=== PATIENT | male | born 2000 | race Caucasian/White ===

== ENCOUNTER 2020-01-26 06:40 | Day surgery (SDC) | payer OTHER ==
[2020-01-24 09:11] VITALS: BMI 39.8
--- OUTSIDE RECORDS SUMMARY | 2020-01-26 06:52 | XMS ---
:2000 Author Organization [facility] Care Team Providers Name Role Phone Doug STEPHENS, Richi Unavailable Unavailable Doug STEPHENS, Richi Unavailable Unavailable Doug STEPHENS, Richi Unavailable Unavailable Doug STEPHENS, Richi Unavailable Unavailable Bennett Enamorado MD Unavailable Unavailable Koelsch, Taryn Unavailable Unavailable Koelsch, Taryn Unavailable Unavailable Koelsch, Taryn Unavailable Unavailable Lavelelch, Taryn Unavailable Unavailable Lawanda Love MD Unavailable Unavailable Lawanda Love MD Unavailable Unavailable Lawanda Love MD Unavailable Unavailable Lawanda Love MD Unavailable Unavailable Lawanda Love MD Unavailable Unavailable Lawanda Love MD Unavailable Unavailable Lawanda Love MD Unavailable Unavailable Lawanda Love MD Unavailable Unavailable Nicol Nelson RD Unavailable Unavailable Maryanne Gates MD Unavailable Unavailable Maryanne Gates MD Unavailable Unavailable Kody STEPHENS, Maryanne Unavailable Unavailable Kody STEPHENS, Maryanne Unavailable Unavailable Kody STEPHENS, Maryanne Unavailable Unavailable Re-disclosure Warning The records that you are about to access may contain information from federally- assisted alcohol or drug abuse programs. If such information is present, then the following federally mandated warning applies: This information has been disclosed to you from records protected by federal confidentiality rules (42 CFR part 2). The federal rules prohibit you from making any further disclosure of this information unless further disclosure is expressly permitted by the written consent of the person to whom it pertains or as otherwise permitted by 42 CFR part 2. A general authorization for the release of medical or other information is NOT sufficient for this purpose. The Federal rules restrict any use of the information to criminally investigate or prosecute any alcohol or drug abuse patient.The records that you are about to access may contain highly sensitive health information, the redisclosure of which is protected by Article 27-F of the [facility] Public Health law. If you continue you may haveaccess to information: Regarding HIV / AIDS; Provided by facilities licensed or operated by the [facility] Office of Mental Health; or Provided by the [facility] Office for People With Developmental Disabilities. If such information is present, then the following [facility] mandated warning applies: This information has been disclosed to you from confidential records which are protected by state law. State law prohibits you from making any further disclosure of this information without the specific written consent of the person to whom it pertains, or as otherwise permitted by law. Any unauthorized further disclosure in violation of state law may result in a fine or alf sentence or both. A general authorization for the release of medical or other information is NOT sufficient authorization for further disclosure. Allergies and Adverse Reactions Type Description Substance Reaction Status Data Source(s ) Drug allergy No Known Allergies No Known NO KNOWN ALLERG Jama Smiley [facility] Family History Family Member Family Member Family Member Date of Description Data Source(s) Name Gender Status Status Unknown Female Problem 09/28/2015 NEXTGEN ([place] n (finding) 12:00:00 AM [facility] EDT [facility] ) Unknown Female Problem 09/28/2015 NEXTGEN ([place] (finding) 12:00:00 AM [facility] EDT [facility] ) Encounters Encounter Providers Location Date Indications Data Source(s ) Attender: Richi [facility] 12/31/2019 Encounter for NEXT GEN ([place] 12:15:[facility] 12/31/2019 12:15:00 PM EDT Encounter for immunization Outpatient Attender: Bennett 12/14/2019 CHRONIC ADENOIDITIS , Jama Enamorado MD 10:15:00 AM EDT - DEVIATED SEPTUM, H ospital 12/14/2019 HYPERTROPHY 05:53:00 AM EDT CHRONIC ADENOIDITIS, DEVIATED SEPTUM, HY PERTROPHY Patient discharged. Attender: Jayy Pulmonology 11/22/2019 Other obesity due t o NEXTGEN Nicol Nelson RD [facility] 03:02:00 PM excess caloriesDie tary (Dami [facility] EDT - calcium deficiencyPure Ch ildrens 11/22/2019 hypercholesterolemia, Hea lth 03:02:00 PM unspecifiedAbnormal Phys icians EDT weight gain LLP) Other obesity due to excess calories Dietary calcium deficiency Pure hypercholesterolemia, unspecified Abnormal weight gain Attender: Lawanda Edge At 11/21/2019 NEXTGE N (Dami Love MD [place] - 03:24:00 [facility] 03:24:00 PM EDT Attender: Lawanda Edge At 11/18/2019 NEXT N (Dami Love MD [place] 09:23:00 AM EDT - [facility]18[facility] ) 09:23:00 AM EDT Attender: Lawanda Edge At 11/02/2019 NEXT N (Dami Love MD [place] 11:49:00 AM EDT - [facility] 11/02/2019 [facility] ) 11:49:00 AM EDT Attender: Lawanda Edge At 10/31/2019 [facility] N (Dami Love MD [place] 11:38:00 AM EDT - [facility] 10/31/2019 [facility] ) 11:38:00 AM EDT Attender: Nicol [facility] Pulmonology 10/25/2019 Abnormal weigh t NEXTGEN (Dami Nelson RD [facility] 03:35:00 PM EDT - gainOther Child [facility] 10/25/2019 obesity due to [facility]) 03:35:00 PM EDT excess calories Abnormal weight gain Other obesity due to excess calories OutpatientOFFICE/OUTPATIENT Attender: Jayy Edge 10/17/2019 Vitamin D deficiency, NEXTGEN VISIT EST 33-40 Lawanda Coy [place] - 12:00:00 PM unspecifiedVitilig oAbnormal (Dami Love MD [facility] EDT - weight gainAutoimmune Chi ldrens 10/17/2019 thyroiditis Health 12:00:00 PM [facility] EDT LLP) Vitamin D deficiency, unspecified Vitiligo Abnormal weight gain Autoimmune thyroiditis OutpatientPREV Attender: Pediatrics 09/29/2019 Encntr for general NE XTGEN VISIT EST AGE Richi Jose Masseyy 10:00:00 AM adult medical exam (Michael golden 18-39 Doug Garcia EDT - w/o abnormal Childrens 09/29/2019 findingsPressure Health 10:00:00 AM sensation in both Physic ians EDT earsHypertension, LLP) unspecified typeAutoimmune thyroiditisObesity (BMI 35.0-39.9 without comorbidity)Vitamin D deficiency, unspecifiedSprain of unspecified ligament of left ankle, subs encntr Encntr for general adult medical exam w/ o abnormal findings Pressure sensation in both ears Hypertension, unspecified type Autoimmune thyroiditis Obesity (BMI 35.0-39.9 without comorbidi ty) Vitamin D deficiency, unspecified Sprain of unspecified ligament of left a nkle, subs encntr 11-20 MINS OF Attender: Pediatrics Of 09/14/2019 Otalgia, NEXTGEN MEDICAL Taryn Darline [place] 01:50:00 PM bilateral ([place] DISCUSSION VIA EDT - [employer] TELEPHONE E/M 09/14/2019 Health PHYS 01:50:00 PM [facility] EDT LLP) Otalgia, bilateral Attender: Taryn [facility] Of 09/05/2019 ENEIDA N (Dami Gregorio [place] 12:19:00 PM EDT Childr ens - 09/05/2019 Health 12:19:00 PM EDT [facility]) OutpatientO Attender: Taryn [facility] 08/30/2019 Otalgia, NEXTG EN ([place] FFICE/OUTLA Darline [place] - 02:00:00 PM EDT bilateral Chi ldrens TIENT VISIT Telehealth - 08/30/2019 Health EST 13-20 02:00:00 PM EDT [facility]) Otalgia, bilateral OutpatientOFFICE/OUTPATIENT Attender: Pediatrics 07/15/2019 Acute NEXTGEN VISIT EST 20-32 Maryanne Jose Sleep[place] 10:15:00 AM non-recurrent (Lane brittney Gates MD [place] - EDT - sinusitis, Childrens Telehealth 07/15/2019 unspecified Health 10:15:00 AM location [facility] EDT [facility]) Acute non-recurrent sinusitis, unspecifi ed location PHONE E/M Attender: Pediatrics Of 07/13/2019 Sprain of NEXTGEN PHYS/QHP 5-10 Taryn [place] 02:46:00 PM unspecified (Darell cottrell MIN EDT - ligament of Childrens 07/13/2019 left ankle, Health 02:46:00 PM subs encntr [facility] EDT [facility]) Sprain of unspecified ligament of left a nkle, subs encntr OutpatientOFFICE/OUTPATIENT Attender: Pediatrics 07/09/2019 Moderate NEXTGEN VISIT EST 13-20 Lakshmiy 11:30:00 AM left ankle ([place]line [place] EDT - sprain, Childrens 07/09/2019 initial Health 11:30:00 AM encounter [facility] EDT [facility]) Moderate left ankle sprain, initial enco unter Attender: Peds Endo 05/23/2019 NEXTGEN Lawanda At 02:41:00 PM ([place] Ivan [place] EST - Childrens 05/23/2019 Health 02:41:00 PM [facility] EST LLP) Outpatie Attender: Peds Endo 04/07/2019 Vitamin D deficiency, NEX TGEN ntOFFICE Lawanda At 10:30:00 AM unspecifiedVitiligoAutoi mmune ([place] /MARILUZ [place] EST - thyroiditis Children ENT 04/07/2019 Health VISIT 10:30:00 AM [facility] EST EST LLP) 33-40 Vitamin D deficiency, unspecified Vitiligo Autoimmune thyroiditis Functional Status Immunizations Vaccine Date Status Description Data Source(s) New in 2011. IIV4 12/31/2019 completed Influenza 0.5 PF NEXTG EN ([place] 12:00:00 AM EDT Childrens He alth [facility]) Source: New Immunization Record Medications Medication Brand Start Product Dose Route Administrative Pharmacy [facility] Indications Reaction Description Data Name Date Form Instructions Instructions Source(s) Levothyroxi levoth .00 ORAL active take 1 NEXTGEN ne Sodium yroxin 2019 {tabl tablet by ([place] 0.175 MG e 175 12:00: et} oral route Ch ildrens Oral Tablet mcg 00 AM every day He alth levothyroxi tablet EDT Physic i[facility] ne 175 mcg LLP) tablet !! Check [employer] Pricing: BIN #: [phone] Group #: [id number] Card #: [id number] PCN:FW Flonase Allergy Fluticasone 08/30/2019 NASAL completed Fluticasone NEXTGEN Relief 50 propionate 12:00:00 AM pr opionate ([place] mcg/actuation 0.05 EDT 0.05 Childr ens nasal MG/ACTUAT MG/ACTUAT Heal th spray,suspension Metered Dose Metered Dose [facility] Nasal [place] Nasal [place] L LP) [Flonase] !! Check [employer] Pricing: BIN #: [phone] Group #: [id number] Card #: [id number] PCN: Amoxicillin Augmentin 07/15/2019 1.00 ORAL completed amoxicillin NEXTGEN 875 MG / 875 mg-125 12:00:00 AM {tablet} 875 MG / ([place] Clavulanate mg tablet EDT clavulan ate Childrens 125 MG Oral 125 MG Oral H ealth Tablet Tablet [facility] [Augmentin] [Augmentin] L LP) Augmentin 875 mg-125 mg tablet !! Check [employer] Pricing: BIN #: [phone] Group #: [id number] Card #: [id number] PCN: Levothyroxine levothyroxine 04/07/2019 1.00 ORAL completed take 1 NEXTGEN Sodium 0.175 175 mcg tablet 12:00:00 AM {tablet} tablet ([place] MG Oral Tablet EST by oral Ch ildrens levothyroxine route Healt h 175 mcg tablet every Phys icians day LLP) !! Check [employer] Pricing: BIN #: [phone] Group #: [id number] Card #: [id number] PCN: Insurance Providers Payer name Policy type / Policy ID Covered Covered democrat's Policy Plan Coverage type democrat ID relationship to Wright Information wright CIGNA [id number] [place] [id number] HEALTHCARE PPO 3 CIGNA Commercial [id number] insurance CIGNA Commercial [id number] insurance CIGNA Commercial [id number] insurance CIGNA [id number] FA [id number] HEALTHCARE HMO 3 CIGNA Commercial [id number] insurance CIGNA Commercial [id number] insurance CIGNA [id number] 3 Problems, Conditions, and Diagnoses Code Display Name Description Problem Type Effective Dates Data Source(s) Z79.899 Other long-term Z79.899 Diagnosis 12/14/2019 [place] (current) drug 05:52:00 AM EDT Hospi nabil therapy Z68.41 Body mass index Z68.41 Diagnosis 12/14/2019 [place] (BMI) 40.0-44.9, 05:52:00 AM EDT Hos pital adult E66.01 Morbid (severe) E66.01 Diagnosis 12/14/2019 [place] obesity due to 05:52:00 AM EDT Hospi nabil excess calories E03.9 Hypothyroidism, E03.9 Diagnosis 12/14/2019 [place] unspecified 05:52:00 AM EDT Hospital 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 J35.02 Diagnosis 12/14/2019 [place] 05:52:00 AM EDT Hospital 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 12/14/2019 [place] sinusitis 05:52:00 AM EDT Hospital 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 12/14/2019 [place] sinusitis 05:52:00 AM EDT Hospital 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 12/14/2019 [place] sinusitis 05:52:00 AM EDT Hospital 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 12/14/2019 [place] sinusitis 05:52:00 AM EDT Hospital J34.3 Hypertrophy of J34.3 Diagnosis 12/14/2019 [place] nasal turbinates 05:52:00 AM EDT Hos pital J34.2 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 12/14/2019 [place] septum 05:52:00 AM EDT Hospital Surgeries/Procedures Procedure Description Date Indications Data Source(s) Iiv4 vacc no prsv 0.5 ml 12/31/2019 NEX TGEN ([place] im 12:00:00 AM EDT [facility] alth - 12/31/2019 [facility]) 12:00:00 AM EDT IMMUNIZATION ADMIN 12/31/2019 NEXTGEN ( [place] 12:00:00 AM EDT [facility] alth - 12/31/2019 [facility]) 12:00:00 AM EDT 1 cc sterile 12/31/2019 NEXTGEN ([place] syringe&needle 12:00:00 AM EDT [facility] - 12/31/2019 [facility]) 12:00:00 AM EDT Oxygen therapy 12/14/2019 [facility] ([facility]) 12:00:00 AM EDT Plant Guard Changed The Dx 11/22/2019 NEXTGEN ([place] (codes Or Mapping) 12:00:00 AM EDT Childr [facility] - 11/22/2019 [facility]) 12:00:00 AM EDT MED NUTRITION INDIV 11/22/2019 NEXTGEN ([place] SUBSEQ 12:00:00 AM EDT Childrenmadeline Flores alth - 11/22/2019 [facility]) 12:00:00 AM EDT Plant Guard Changed The Dx 10/25/2019 NEXTGEN ([place] (codes Or Mapping) 12:00:00 AM EDT Childr [facility] - 10/25/2019 [facility]) 12:00:00 AM EDT MEDICAL NUTRITION INDIV 10/25/2019 NEXT GEN ([place] IN 12:00:00 AM EDT Holli Flores alth - 10/25/2019 [facility]) 12:00:00 AM EDT OFFICE/OUTPATIENT VISIT 10/17/2019 NEXT GEN ([place] EST 33-40 12:00:00 AM EDT Holli Flores alth - 10/17/2019 [facility]) 12:00:00 AM EDT Plant Guard Changed The Dx 09/29/2019 NEXTGEN ([place] (codes Or Mapping) 12:00:00 AM EDT Childr [facility] - 09/29/2019 [facility]) 12:00:00 AM EDT PREV VISIT EST AGE 18-39 09/29/2019 NEX TGEN ([place] 12:00:00 AM EDT Holli Flores alth - 09/29/2019 [facility]) 12:00:00 AM EDT SPECIMEN HANDLING 09/29/2019 NEXTGEN (Michael golden OFFICE-LAB 12:00:00 AM EDT Holli Flores alth - 09/29/2019 [facility]) 12:00:00 AM EDT URINALYSIS NONAUTO W/O 09/29/2019 NEXTG EN ([place] SCOPE 12:00:00 AM EDT Holli Flores alth - 09/29/2019 [facility]) 12:00:00 AM EDT VISUAL ACUITY SCREEN 09/29/2019 NEXTGEN ([place] 12:00:00 AM EDT Holli Flores alth - 09/29/2019 [facility]) 12:00:00 AM EDT PURE TONE HEARING TEST 09/29/2019 NEXTG EN ([place] AIR 12:00:00 AM EDT Holli Flores alth - 09/29/2019 [facility]) 12:00:00 AM EDT Plant Guard Made Changes To 09/14/2019 NEXTGE N ([place] Modifier 12:00:00 AM EDT Holli Flores alth - 09/14/2019 [facility]) 12:00:00 AM EDT 11-20 MINS OF MEDICAL 09/14/2019 NEXTGE N ([place] DISCUSSION VIA TELEPHONE 12:00:00 AM EDT [facility] Health E/M PHYS - 09/14/2019 [facility]) 12:00:00 AM EDT OFFICE/OUTPATIENT VISIT 08/30/2019 NEXT GEN ([place] EST 13-20 12:00:00 AM EDT Holli Flores alth - 08/30/2019 [facility]) 12:00:00 AM EDT Plant Guard To Use Change 07/15/2019 NEXTGEN ([place] Control Not Related 12:00:00 AM EDT [facility] - 07/15/2019 [facility]) 12:00:00 AM EDT OFFICE/OUTPATIENT VISIT 07/15/2019 NEXT GEN ([place] EST 20-32 12:00:00 AM EDT Holli Flores alth - 07/15/2019 [facility]) 12:00:00 AM EDT PHONE E/M PHYS/QHP 5-10 07/13/2019 NEXT GEN ([place] MIN 12:00:00 AM EDT Holli Flores alth - 07/13/2019 [facility]) 12:00:00 AM EDT MED SERV 07/09/2019 NEXTGEN ([place] ULISES/WKEND/HOLIDAY 12:00:00 AM EDT [facility] - 07/09/2019 [facility]) 12:00:00 AM EDT OFFICE/OUTPATIENT VISIT 07/09/2019 NEXT GEN ([place] EST 13-20 12:00:00 AM EDT Holli Flores alth - 07/09/2019 [facility]) 12:00:00 AM EDT OFFICE/OUTPATIENT VISIT 04/07/2019 NEXT GEN ([place] EST 33-40 12:00:00 AM EST Childrenmadeline Flores alth - 04/07/2019 [facility]) 12:00:00 AM EST Results ID Date Data Source [id number] 01/22/2020 09:21:00 AM EDT [facility] Name Value Range Interpretation Description Data Sup porting Code Source(s) Document(s ) SARS [facility] coronavirus 2 RNA This lab was ordered by TIGRE MATIAS and reported by [facility]. ID Date Data Source [id number] 12/14/2019 05:58:00 AM EDT [facility] Name Value Range Interpretation Code Description Data Ayaka rce(s) Supporting Document(s ) POC SARS NEGATIVE [place] COV2 Hospital ID Date Data Source [id number] 09/29/2019 10:30:00 AM EDT NEXTGEN ([facility] [id number] [facility]) Name Value Range Interpretation Code Description Data Ayaka rce(s) Supporting Document(s ) Procedure Social History Code Duration Value Status Description Data Source(s ) Caffeine Use 12/31/2019 completed NEXTGEN ([place] 12:00:00 AM [facility] EDT [facility] ) Smoking 12/31/2019 Unknown if completed Unknown if ever NEXTGEN ( [place] 12:00:00 AM ever smoked smoked [facility] EDT [facility] ) Caffeine Use 10/17/2019 completed NEXTGEN ([place] 12:00:00 AM [facility] EDT [facility] ) 09/29/2019 Never smoked completed Never smoked NEXTGEN ([place] 12:00:00 AM tobacco tobacco [facility] EDT [facility] ) Vital Signs ID Date Data Source UNK Name Value Range Interpretation Code Description Data Source(s) Body temperature 36.6 Donna 36.6 Donna NEXTGEN ([facility] ) Diastolic blood 77 mm[Hg] 77 mm[Hg] [facility] pressure Hospital Systolic blood 117 mm[Hg] 117 mm[Hg] [facility] ns pressure Hospital Respiratory rate 16 /min 16 /min [facility] Heart rate 63 /min 63 /min [facility] Body temperature 36.52255 36.72083 Donna [facility] Body temperature 98.2 [degF] 98.2 [degF] [facility] Body mass index 40.0 kg/m2 40.0 kg/m2 [facility] (BMI) [Ratio] Hospital Body weight 263 [lb_av] 263 [lb_av] [facility] Body mass index 39.32 kg/m2 Overweight 39.32 kg/m2 NEXTGEN ([place] (BMI) [Ratio] [facility] Body weight 118.161 kg 118.161 kg NEXTGEN ([facility] Body height 173.35 cm 173.35 cm NEXTGEN ([place] [facility] ) Body mass index 40.15 kg/m2 Overweight 40.15 kg/m2 NEXTGEN ([place] (BMI) [Ratio] [facility] Body weight 120.656 kg 120.656 kg NEXTGEN ([place] [facility] ) Body height 173.35 cm 173.35 cm NEXTGEN ([place] [facility] ) Inhaled oxygen 21 % 21 % NEXTGEN ([place] concentration [facility]icians [facility] ) Oxygen saturation 99 % 99 % NEXTGEN ([place] in Arterial blood [facility] by Pulse oximetry Physic ans [facility]) Body mass index 40.27 kg/m2 Overweight 40.27 kg/m2 NEXTGEN ([place] (BMI) [Ratio] [facility] ) Respiratory rate 18 /min 18 /min NEXTGEN ([facility] ) Body temperature 36.4 Donna 36.4 Donna NEXTGEN ([facility] ) Heart rate 89 /min 89 /min [facility] Diastolic blood 66 mm[Hg] 66 mm[Hg] NEXTGEN ( [place] pressure [facility] ) Systolic blood 133 mm[Hg] 133 mm[Hg] NEXTGEN ([place] pressure [facility] ) Body weight 121.018 kg 121.018 kg NEXTGEN ([place] [facility] ) Body height 173.35 cm 173.35 cm NEXTGEN ([place] on [facility] ) Body temperature 36.9 Donna 36.9 Donna NEXTGEN ([facility] ) Body weight 113.398 kg 113.398 kg NEXTGEN ([place] [facility] ) Body temperature 37.3 Donna 37.3 Donna NEXTGEN ([facility] ) Body weight 114.305 kg 114.305 kg CHARLEY ([place] on [facility] ) Body temperature 36.7 Donna 36.7 Donna [facility] ([facility] ) Patient Treatment Plan of Care Planned Activity Planned Date Details Description Data Source (s) Levothyroxine Sodium 10/17/2019 12:00:00 NEXT (Dami 0.175 MG Oral Tablet AM EDT [facility]) Flonase Allergy Relief 50 08/30/2019 12:00:00 NEXT (Dami mcg/actuation nasal AM EDT [facility] spray,suspension [facility]) Amoxicillin 875 MG / 07/15/2019 12:00:00 NEXT (Dami Clavulanate 125 MG Oral AM EDT [facility] Tablet [Augmentin] [facility]) Levothyroxine Sodium 04/07/2019 12:00:00 NEXT (Dami 0.175 MG Oral Tablet AM EST [facility])
--- NOTE | 2020-01-26 07:42 | OP ---
Operative Note - Note: Operative Date: 01/26/20 Pre-Operative Diagnosis: Left ankle Operation: Left ankle Post-Operative Diagnosis: Same as Pre-op Surgeon: Jarrett Bañuelos Press Smith Helper: Kelsey Sarabia Anesthesia: General Operative Report Dictated: Yes
[2020-01-26] MEDS ORDERED: SUCCINYLCHOLINE CHLORIDE 200 MG/10 ML SYRINGE ONE (07:43)
[2020-01-26] MEDS ORDERED: PROPOFOL 20 ML ONE ×2 (07:43)
[2020-01-26] MEDS ORDERED: MIDAZOLAM HCL 2 MG/2 ML SINGLE DOSE VIAL ONE (07:43)
[2020-01-26] MEDS ORDERED: ONDANSETRON 4 MG/2 ML VIAL ONE (08:14)
[2020-01-26] MEDS ORDERED: DEXAMETHASONE SOD PHOSPHATE 4 MG/1 ML VIAL ONE (08:14)
[2020-01-26] MEDS ORDERED: KETOROLAC TROMETHAMINE 30 MG/1 ML VIAL ONE (08:16)
[2020-01-26] MEDS ORDERED: ceFAZolin SODIUM 1 GM VIAL ONE (08:22)
[2020-01-26] MEDS ORDERED: BUPIVACAINE HCL/PF 0.25% (2.5MG/ML) 10 ML VIAL ONE (09:54)
[2020-01-26] MEDS ORDERED: ACETAMINOPHEN 325 MG TABLET (FP) PO PRN (10:39)
[2020-01-26] MEDS ORDERED: oxyCODONE HCL 5 MG TABLET PO PRN ×2 (10:39)
[2020-01-26] MEDS ORDERED: ONDANSETRON 4 MG/2 ML VIAL IVPUSH PRN (10:39)
[2020-01-26] MEDS ORDERED: LACTATED RINGERS SOLUTION 1,000 ML IV SCH (10:45)
--- NOTE | 2020-01-26 12:03 | OP ---
DATE OF OPERATION: 01/26/2020 PREOPERATIVE DIAGNOSES: Left ankle impingement, left ankle osteochondral injuries, left ankle chronic instability. PROCEDURE: Left ankle arthroscopy with debridement of osteophyte; microfracture of the medial and lateral aspects of the talus with platelet-rich plasma augmentation; and lateral ankle ligament repair. SURGEON: Jarrett Bañuelos MD VEGETABLE FARMER: RADHA Marie, whose skillful assistance was necessary for the safe and timely performance of this procedure. Ms. Sarabia was able to provide limb positioning, retraction, assist in driving the camera, as well as assist in the open ligament repair, insertion of orthopedic fixation hardware. ANESTHESIA: General. POSTOPERATIVE CONDITION: Stable. COMPLICATIONS: None. IMPLANTS: [employer] Q-FIX anchors x2. INDICATIONS: This is a pleasant gentleman who had injured his ankle and was treated with extensive nonsurgical care. Despite this, he had persistent pain and inability to return to sports. Treatment options were discussed including nonoperative versus operative management. Operative risks were reviewed including bleeding, infection, neurovascular injury, need for further surgery, postoperative pain and stiffness, recurrent instability, failure of the cartilage to heal or development of posttraumatic arthrosis. I reviewed medical risks such as heart attack, stroke, DVT, PE, and . I discussed use of perioperative antibiotic and DVT prophylaxis. I addressed all the patient's questions and concerns. He voiced understanding and elected to proceed. DESCRIPTION OF PROCEDURE: Patient was brought to the operating room where general anesthesia was administered. The left lower extremity was examined, demonstrating positive talar tilt and positive anterior drawer. This was significantly increased compared to the contralateral examination. The patient was then prepped and draped in the usual sterile fashion. A preoperative dose of antibiotics was given, and the usual timeout procedure was performed. The bony landmarks were then marked out. A 22-gauge needle was inserted in the site of the medial portal into the joint. Saline 10 mL were injected. The skin was then incised with a 15-blade just down to the subcutaneous tissue. Spreading was then done to the level of the capsule, and a curved clamp was passed into the joint. After being able to palpate the cartilaginous surfaces gently, the clamp was then passed across the anterior aspect of the joint through the site of the lateral portal. The superficial peroneal nerve had been previously marked out, and care was made to ensure that this was lateral to the nerve location. The curved clamp was passed distal up to the subcutaneous layer of the skin, and then the 15-blade was again used to just cut through the skin and allow the clamp to be passed out, forming the lateral portal. The camera was then inserted into the medial portal. Fluid was passed into the joint. The joint was now inspected. There was moderate synovitis present. This limited visualization. Electrocautery was passed from lateral, and this was used to debride the synovitis to provide visualization of the joint. A significant anterior osteophyte was noted on the anterior aspect of the tibia. The wand was used to remove the soft tissue. A 3.5-mm shaver was then used to debride the anterior osteophyte. Attention was now turned to the talar surface. The arthroscope was passed into the tibiotalar joint. Here in the central portion, no significant lesions were noted. On the medial shoulder of the talus, there was some fraying noted of the cartilaginous surface. This was probed and was found to be a full-thickness fissure. Given that there was no shekhar defect in the surface, a microfracture technique was employed here. The arthroscope was now passed more lateral to the lateral gutter. Here, also the cartilage surface was grossly intact with some fraying noted of the lateral shoulder. On probing, however, a large, loose flap of articular surface was noted. At this point, the decision was considered as to whether to do an allograft repair or to try to use the patient's bone tissue as an autograft. Given the overall intact surface of the flap, it was felt that a repair was a reasonable option for now. The shaver was used to debride any nonviable or friable tissue. was done on the bony surface to remove any debris. The microfracture awl was now used to create multiple trephinations within the defect and covering the entire surface. A spinal needle was now placed into the center of the defect, and the fluid was evacuated from the joint. The PRP which had been prepared meanwhile was then injected after withdrawing all the extra fluid from the joint. The arthroscopic portals were now sutured. A curvilinear incision was planned out over the distal fibula. The incision was then carried down through skin through subcutaneous tissue. Blunt spreading was used to expose the extensor retinaculum. This was then elevated anteriorly. The periosteum was then incised on the distal fibula, elevating up the ATFL and CFL. This was done both sharply as well as using a periosteal elevator. The next step was to place 2 anchors. Both anchors were drilled into the midportion of the distal fibula and then more anterior in the distal fibula. Sutures were then passed using a free needle with 1 locking stitch and 1 nonlocking suture. After passing the sutures, the ankle was now held in a neutral and slightly everted position. The sutures were then tied. An anterior drawer was now performed. The ankle was found to be stable. The extensor retinaculum was then imbricated over the repair to provide an additional layer of stability. The subcutaneous tissue was then approximated using 3-0 Vicryl. The skin was closed using running 3-0 nylon. Sterile dressings were placed. The patient was placed into a well-padded short-leg cast which was then bivalved. He was extubated and transferred to recovery room in stable condition. Maribell [id number]
[2020-01-26 13:39] VITALS: BP 112/69; PULSE 92; TEMP 98
== END 2020-01-26 13:43 | disposition home or self-care (01) ==
LOC: FASU 06:40
PROVIDERS: ATTEND Orthopaedic Surgery Sports Medicine
PROC: 0SBG4ZZ Excision of Left Ankle Joint, Percutaneous Endoscopic Approach (ICD-10-PCS; 2020-01-26)
PROC: 0SBG4ZZ Excision of Left Ankle Joint, Percutaneous Endoscopic Approach (ICD-10-PCS; principal; 2020-01-26 08:25)
DX: S93.492A Sprain of other ligament of left ankle, initial encounter (principal); M25.872 Other specified joint disorders, left ankle and foot; M25.372 Other instability, left ankle; M93.272 Osteochondritis dissecans, left ankle and joints of left foot; X58.XXXA Exposure to other specified factors, initial encounter; Y93.9 Activity, unspecified; Y92.9 Unspecified place or not applicable
CPT/HCPCS: 0232T; 27698; 29891; 29897; 94760